=== PATIENT | male | born 1965 | race Caucasian/White ===

== ENCOUNTER 2021-06-20 06:59 | Outpatient (CLI) | payer OTHER, SELFPAY ==
--- NOTE | ~2021-06-20 | CT_ITS ---
EXAMINATION: CT abdomen pelvis w con EXAM DATE: 06/20/2021 07:32 INDICATION: Lower groin pain, possible hernia. TECHNIQUE: Spiral CT of the abdomen and pelvis was performed following intravenous injection of 100 m L Omnipaque 350. Axial, coronal and sagittal images of the abdomen and pelvis were reviewed. The do se-length product (DLP) for this examination was 871.27 mGy-cm. The exposure was tailored according to patient size (auto mA exposure control), and iterative reconstruction (ASIR) was used as additiona l dose reduction technique. There is no prior study for comparison. FINDINGS: Hyperdense left liver lobe lesion measuring 1.0 cm, most likely flash filling hemangioma. The liver, spleen, adrenal glands and pancreas are otherwise unremarkable. Gallbladder is unremarkab le. No biliary obstruction. Portal and splenic veins are patent. Kidneys enhance symmetrically. T here is no hydronephrosis. Scattered regions of right renal cortical scarring from prior infection or infarctions. Small left inguinal fat-containing hernia. The prostate is unremarkable. The bladder is unremarkable. There is no retroperitoneal or pelvic lymphadenopathy. There is mild scattered ar teriosclerotic disease. The appendix is normal. There is small duodenal diverticulum. There is mild scattered colonic divert iculosis. There is no adjacent inflammatory change to suggest diverticulitis. There is expected amou nt of colonic stool. No free intraperitoneal gas. The heart is normal in size. There are no christina cardial or pleural effusions. The lung bases are unremarkable. There are no osteoblastic or osteoly tic lesions identified. IMPRESSION: 1. Right renal cortical scarring. 2. Small left liver lobe lesion likely flash filling hemangioma. 3. Small left inguinal fat-containing hernia. 4. Small duodenal diverticulum. 5. Mild colonic diverticulosis. Reviewed, dictated and finalized at location B.
[2021-06-20 07:24] LABS: Estimated Glomerular Filt Rate > 60
== END 2021-06-20 07:00 | disposition home or self-care (01) ==
LOC: ANHIMG 07:05
PROVIDERS: PCP Internal Medicine; Visit Provider Clinical Nurse Specialist
DX: R10.9 Unspecified abdominal pain (principal); N28.89 Other specified disorders of kidney and ureter; K76.9 Liver disease, unspecified; K40.90 Unilateral inguinal hernia, without obstruction or gangrene, not specified as recurrent; K57.10 Diverticulosis of small intestine without perforation or abscess without bleeding; K57.90 Diverticulosis of intestine, part unspecified, without perforation or abscess without bleeding
CPT/HCPCS: 74177; Q9967

== ENCOUNTER → 2022-01-03 09:48 | Outpatient (CLI) | payer OTHER, SELFPAY ==
--- NOTE | ~2022-01-03 | CT_ITS ---
EXAMINATION: CT abdomen pelvis w con DATE: 01/03/2022 10:13 INDICATION: Liver disease. Liver mass. TECHNIQUE: Computed tomography (CT) of the abdomen and pelvis was performed with 100 mL Omnipaque 350 intravenous contrast. Automated exposure control and iterative reconstruction technique were employe d. The dose-length product was 1009.04 mGy-cm. COMPARISON: CT abdomen and pelvis 06/20/2021 FINDINGS: The visualized portions of the lung bases are clear without pneumonia or pleural effusion. The heart size is normal. There are coronary artery calcifications. No pericardial effusion. There is 11 mm hyperenhancing mass in left hepatic lobe, stable from 06/20/2021. The gallbladder, spleen, pancr eas, adrenal glands, and left kidney are normal. There is moderate atrophy of right kidney. There is prominent fat in left inguinal canal that may be a hernia. There are no dilated loops of bowel. The a ppendix is normal. There are no pathologically enlarged lymph nodes. There is no free intraperitoneal fluid. There is severe lower lumbar spondylosis. There are Schmorl's nodes at multiple levels. IMPRESSION: 1. Stable 11 mm hyperenhancing liver mass. In the absence of chronic liver disease or known malignanc y, this finding is likely a hemangioma or focal nodular hyperplasia. Reviewed, dictated and finalized at location A. IMPRESSION: 1. Stable 11 mm hyperenhancing liver mass. In the absence of chronic liver dise ase or known malignancy, this finding is likely a hemangioma or focal nodular h yperplasia.
== END ==
PROVIDERS: PCP Internal Medicine; Visit Provider Clinical Nurse Specialist
DX: K76.9 Liver disease, unspecified (principal)
CPT/HCPCS: 74177; Q9967

== ENCOUNTER → 2023-10-02 08:11 | Outpatient (CLI) | payer OTHER, SELFPAY ==
--- NOTE | ~2023-10-02 | CT_ITS ---
EXAMINATION: CT abdomen pelvis w con INDICATION: Liver disease, unspecified, liver mass TECHNIQUE: Computed tomographic images of the abdomen and pelvis were obtained after the administrati on of 100 cc of Omnipaque 350 intravenous contrast. The dose-length product (DLP) was 1088.20 mGy-cm. Automated exposure control and iterative reconstruction technique were employed. COMPARISON: 01/03/2022, 06/20/2021 FINDINGS: The lung bases are clear. The heart size is normal. Again noted is a stable, subcapsular hy perenhancing mass in liver segment Rashid. No new liver mass is identified. The spleen, pancreas, gallbl adder, and adrenal glands are normal. There is moderate atrophy of the right kidney. The left kidney is unremarkable. No pathologically enlarged abdominal or pelvic lymph nodes are identified. No free i ntraperitoneal gas or evidence of bowel obstruction. There is calcified atherosclerosis of the aorta and many of the other arteries. Colonic diverticulosis is present without evidence of diverticulitis. There is severe lumbar spondylosis. IMPRESSION: 1. Stable hyperenhancing mass of the liver, likely hemangioma or focal nodular hyperplasia in the abs ence of known liver disease. Reviewed, dictated and finalized at location L. [employer] IMPRESSION: 1. Stable hyperenhancing mass of the liver, likely hemangioma or focal nodular hyperplasia in the absence of known liver disease.
[2023-10-02 08:29] LABS: Estimated Glomerular Filt Rate > 60
== END ==
PROVIDERS: PCP Clinical Nurse Specialist; Visit Provider Clinical Nurse Specialist
DX: K76.9 Liver disease, unspecified (principal)
CPT/HCPCS: 74177; Q9967